=== PATIENT | male | born 2000 | race Caucasian/White ===

== ENCOUNTER 2021-02-17 21:41 | Emergency (ER) | payer SELFPAY ==
[~2021-02-17] VITALS: Ht 190.5 cm; Wt 136.1 kg
[2021-02-17 21:50] VITALS: BP 157/69
--- NOTE | 2021-02-17 21:58 | NUR ---
PT TAKEN TO BED 8
--- NOTE | 2021-02-17 22:05 | NUR ---
PT BIB SELF FOR C/O LEFT EAR PAIN AND PRESSURE X 2 WEEKS. PT REPORTS HE WAS SEEN "A FEW MONTHS AGO" AT [facility] FOR SAME COMPLAINT. HE WAS RX AMOXICILLAN, BUT PT STATES SYMPTOMS RETURNED. PT REPORTS "IT FEELS LIKE THERES WATER IN THERE AND ITS HARD TO HEAR." NO NOTED REDNESS OR SWELLING TO OUTER EAR. PT DENIES N/V/D, FEVER, CHILLS, COUGH, SINUS PAIN, CP OR SOB. MED HX: HEART MURMUR IN INFANCY ALLERGIES: NKA
--- NOTE | 2021-02-17 23:11 | NUR ---
ERMD AT BEDSIDE.
[2021-02-17] MEDS ORDERED: AMOX-1000 PO (23:22)
[2021-02-17] MEDS ORDERED: PSEU120T23 PO (23:22)
[2021-02-17] MEDS ORDERED: NAPR-54 PO (23:22)
--- NOTE | 2021-02-17 23:57 | NUR ---
Patient discharged with v/s stable. Written and verbal after care instructions given and explained. Patient alert, oriented and verbalized understanding of instructions. Ambulatory with steady gait. All questions addressed prior to discharge. ID band removed. Patient advised to follow up with PMD. Rx of AUGMENTIN, NAPROSYN, AND SUDAFED given. Patient educated on indication of medication including possible reaction and side effects. Opportunity to ask questions provided and answered.
== END 2021-02-17 23:57 | disposition home or self-care (01) ==
LOC: MED 21:41
DX: H65.02 Acute serous otitis media, left ear (principal); F17.210 Nicotine dependence, cigarettes, uncomplicated; Z79.899 Other long term (current) drug therapy
CPT/HCPCS: 99283